=== PATIENT | female | born 1990 | race Caucasian/White ===

== ENCOUNTER 2018-03-29 14:12 | Emergency (ER) | payer MEDICAID ==
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
[2018-03-29 17:00] LABS: ALB/GLOB RATIO 1.2 (1.0-1.8); ALBUMIN 4.7 gm/dL (3.7-5.3); ALKALINE PHOSPHATASE 111 U/L (34-104); ANION GAP 16.3 (7.0-16.0); BILIRUBIN,TOTAL 0.7 mg/dL (0.3-1.0); BUN - UREA NITROGEN 5 mg/dL (7-25); CALCIUM SERUM 9.8 mg/dL (8.6-10.3); CARBON DIOXIDE 23.8 mEq/L (21.0-31.0); CHLORIDE 98 mEq/L (98-107); CREATININE - SERUM 0.5 mg/dL (0.6-1.2); GFR AFRICAN-AMERICAN > 60.0 ml/min (>90); GFR NON AFRICAN-AMERICAN > 60.0 ml/min; GLUCOSE 247 mg/dL (70-105); POTASSIUM SERUM 4.1 mEq/L (3.5-5.1); SGOT 182 U/L (13-39); SGPT/ALT 123 U/L (7-52); SODIUM SERUM 134 mEq/L (136-145); TOTAL PROTEIN,SERUM 8.5 gm/dL (6.0-8.3)
[2018-03-29 17:55] LABS: A1C % 10.6 % (4.0-6.0)
--- NOTE | 2018-03-30 09:19 | Diagnostic Imaging Report ---
CHEST X-RAY: AP view INDICATION: pain COMPARISON: None FINDINGS: There is no focal consolidation or pleural effusions The heart is normal in size. The osseous structures demonstrate no acute abnormalities. There is mild scoliosis. IMPRESSION: No focal consolidation identified.
== END 2018-03-29 17:05 ==
LOC: ER 14:12
DX: F41.9 Anxiety disorder, unspecified (principal); R07.89 Other chest pain
CPT/HCPCS: 36415-UA; 71045-TC; 80053-TC; 83036-90; 84484-TC; 85379-TC; 93005

== ENCOUNTER 2018-08-12 11:53 | Emergency (ER) | payer MEDICAID ==
[2018-08-12] MEDS ORDERED: cefTRIAXone 1 GM in Sodium Chloride 0.9% 50 ML IV ONE (12:15)
[2018-08-12] MEDS ORDERED: Sodium Chloride 0.9% 1,000 ML IV ONE (12:15)
[2018-08-12 14:23] LABS: % BASOPHILS 0.9 % (0.0-2.0); % EOSINOPHILS 0.2 % (0.0-5.0); % LYMPHOCYTES 26.5 % (20.0-50.0); % MONOCYTES 9.1 % (2.0-10.0); % NEUTROPHILS 63.3 % (40.0-80.0); BASOPHILE ABSOLUTE 0.1 Th/cumm (0-0.2); HEMATOCRIT 38.8 % (41.0-60); HEMOGLOBIN 12.9 gm/dL (12-16); LYMPHOCYTE ABSOLUTE 2.6 Th/cmm (1.5-3.0); MEAN CELL VOLUME 89.3 fl (81-100); MEAN CORPUSCULAR HEMOGLOBIN 29.7 pg (27.0-31.0); MEAN CORPUSCULAR HGB CONC 33.2 pg (28.0-36.0); MEAN PLATELET VOLUME 8.8 fl; MONOCYTE ABSOLUTE 0.9 Th/cmm (0.3-1.0); NEUTROPHILE ABSOLUTE 6.2 Th/cmm (1.8-8.0); PLATELET COUNT 285 Th/cmm (150-400); RED BLOOD COUNT 4.34 Mil/cmm (3.80-5.10); RED CELL DISTRIBUTION WIDTH 13.1 % (11.5-20.0); WHITE BLOOD COUNT 9.8 Th/cmm (4.8-10.8)
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
[2018-08-12 14:42] LABS: ANION GAP 17.3 (7.0-16.0); BUN - UREA NITROGEN 5 mg/dL (7-25); CARBON DIOXIDE 24.1 mEq/L (21.0-31.0); CHLORIDE 97 mEq/L (98-107); CREATININE - SERUM 0.6 mg/dL (0.6-1.2); GFR AFRICAN-AMERICAN > 60.0 ml/min (>90); GFR NON AFRICAN-AMERICAN > 60.0 ml/min; GLUCOSE 310 mg/dL (70-105); POTASSIUM SERUM 3.4 mEq/L (3.5-5.1); SODIUM SERUM 135 mEq/L (136-145)
[2018-08-12] MEDS ORDERED: Triple Antibiotic 0.94 gm Pkt TP ONE (14:56)
[2018-08-12] MEDS ORDERED: INSULIN HUMAN REGULAR 100 UNITS/ML UNIT SUBQ ONE (15:01)
[2018-08-12] MEDS ORDERED: Triple Antibiotic 0.94 gm Pkt TP STA (15:01)
[2018-08-12] MEDS ORDERED: Potassium Chloride 20 mEq ER Tab PO ONE ×2 (15:02→15:22)
[2018-08-12] MEDS ORDERED: INSULIN HUMAN REGULAR 100 UNITS/ML UNIT ONE (15:22)
--- NOTE | 2018-08-12 15:37 | Diagnostic Imaging Report ---
CT scan of the brain without contrast History: Headache Total DLP equals 569 CTDI equals 31.2 Axial sections were obtained from the base of the skull to the vertex. There is a normal ventricular system size. No focal parenchymal lesions are seen. No evidence of any mass effect or shift of midline structures. No extra-axial masses or abnormal fluid collections. Soft tissue disruption and swelling noted over the high right parietal region of the skull. Impression: 1. No acute intracerebral abnormalities 2. Soft tissue disruption over the high right parietal region of the skull
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
== END 2018-08-12 16:10 | disposition left against medical advice (07) ==
LOC: ER 11:53
DX: S01.01XA Laceration without foreign body of scalp, initial encounter (principal); E11.65 Type 2 diabetes mellitus with hyperglycemia; E87.6 Hypokalemia; V43.52XA Car driver injured in collision with other type car in traffic accident, initial encounter; Y93.89 Activity, other specified; Y92.410 Unspecified street and highway as the place of occurrence of the external cause; Y99.8 Other external cause status
CPT/HCPCS: 99285; 96365; 96375; 12004; 70450; 72125; 36415; 85025; 83036; 84703; 80048; 90715; J2405; J0696; A4217; J1815; J7030; X6444; X7704

== ENCOUNTER 2018-11-26 07:51 | Emergency (ER) | payer MEDICAID ==
--- NOTE | 2018-11-26 14:10 | ED Physician Chart ---
ED Chief Complaint/HPI - Patient Information Allergies:: Allergies Allergy/AdvReac Type Severity Reaction Status Date / Time No Known Allergies Allergy Verified 10/13/17 16:28 Vitals:: Vital Signs - 8 hr 11/26/18 07:51 Temp 98.4 F HR 115 RR 18 BP 140/82 O2 Sat % 96 Family Medical History - Family Member Mother History Unknown: Yes Ethnicity: Living Status: Still Living Hx Family Diabetes: Yes Daughter History Unknown: Yes Ethnicity: Living Status: Still Living Hx Family Diabetes: Yes ED Septic Shock - <6hrs of presentation: Vital Signs: Vital Signs - 8 hr 11/26/18 07:51 Temp 98.4 F HR 115 RR 18 BP 140/82 O2 Sat % 96
== END 2018-11-26 08:30 | disposition left against medical advice (07) ==
LOC: ER 07:51
DX: Z53.21 Procedure and treatment not carried out due to patient leaving prior to being seen by health care provider (principal); R10.9 Unspecified abdominal pain